=== PATIENT | female | born 1965 | race Two or more races ===

== ENCOUNTER 2019-01-17 12:30 | Outpatient (CLI) | payer OTHER | END 2019-01-17 12:33 | disposition home or self-care (01) | LOC: RAD 12:30 | DX: S70.02XA Contusion of left hip, initial encounter (principal); S90.32XA Contusion of left foot, initial encounter ==

== ENCOUNTER 2019-04-28 16:00 | Outpatient (CLI) | payer OTHER | END 2019-04-28 16:31 | disposition home or self-care (01) | LOC: RAD 16:00 | DX: M54.5 Low back pain (principal); M54.2 Cervicalgia ==

== ENCOUNTER 2019-08-18 15:25 | Outpatient (CLI) | payer OTHER | END 2019-08-18 15:35 | disposition home or self-care (01) | LOC: RAD 15:25 | PROVIDERS: ATTEND Orthopaedic Surgery | DX: M25.512 Pain in left shoulder (principal) ==

== ENCOUNTER → 2022-05-08 | Outpatient (CLI) | payer OTHER | END | disposition home or self-care (01) | LOC: RAD 16:08 | PROVIDERS: ATTEND Psychiatry & Neurology Neurology | DX: G50.1 Atypical facial pain (principal); G50.0 Trigeminal neuralgia ==

== ENCOUNTER 2025-01-06 13:08 | Outpatient (CLI) | payer OTHER | END 2025-01-06 13:13 | disposition home or self-care (01) | LOC: RAD 13:08 | PROVIDERS: ATTEND Orthopaedic Surgery | DX: M25.561 Pain in right knee (principal); M25.562 Pain in left knee ==

== ENCOUNTER 2025-02-02 09:18 | Outpatient (CLI) | payer OTHER | END 2025-02-02 09:23 | disposition home or self-care (01) | LOC: NUCLEAR 09:18 | PROVIDERS: ATTEND Orthopaedic Surgery | DX: M81.0 Age-related osteoporosis without current pathological fracture (principal) ==